=== PATIENT | male | born 1985 | race Caucasian/White ===

== ENCOUNTER 2025-03-24 06:30 | Day surgery (SDC) | payer BC, SELFPAY ==
[2025-03-24 08:10] VITALS: BMI 22.6
[2025-03-24 08:15] VITALS: BP 119/83
[2025-03-24] MEDS: TYLENOL 1000 MG PO (08:15)
[2025-03-24 08:17] VITALS: BMI 22.6
[2025-03-24] MEDS: NORMOSOL-R/PLASMALYTE-A 1000 IV (08:26)
--- NOTE | 2025-03-24 09:39 | W.IMMPOSTOP ---
Addendum entered and electronically signed by Esequiel Ceja MD 03/24/25 09:58:
updated mother and patient in SDS, but patient still a bit groggy
Original Note:
Surgical Immed Post Op Note
-
Primary Surgeon: Esequiel Ceja MD
Assisting Surgeon: None
Pre-op Diagnosis: Anal pain, anal bleeding
Post-op Diagnosis: Prolapsing internal hemorrhoids
Procedure Performed: Exam under anesthesia, bilateral pudendal nerve block
Anesthesia Type: Sedation with local
Specimen / Cultures: None
Estimated Blood Loss: 2 mL
Complications: None
Operative Findings: 5 mixed�component partially prolapsing internal hemorrhoids; left lateral internal hemorrhoid with irritation and some oozing of blood
[2025-03-24 09:40] VITALS: BP 128/76
--- NOTE | 2025-03-24 09:41 | OR.RPT ---
Operative Report
Operative Report
DATE OF OPERATION: 03/24/2025
SURGEON: Esequiel Ceja MD
PREOPERATIVE DIAGNOSIS: Anal pain, anal bleeding
POSTOPERATIVE DIAGNOSIS: Prolapsing internal hemorrhoids
OPERATION: Exam under anesthesia, bilateral pudendal nerve block
ASSISTANTS:
1. None
ANESTHESIA: Sedation with local
ESTIMATED BLOOD LOSS: 2 mL
FINDINGS:
1. Large internal hemorrhoid in the left lateral position, mildly irritated with slight ooze of blood, partial prolapse, with moderate external component
2. Moderate internal hemorrhoids in the RPQ, RLQ and RAQ with small external component, minimally irritated, not bleeding, no prolapse
3. Small internal hemorrhoid in the left posterior position, not irritated, not bleeding, partial prolapse, with small external component and associated small skin tag
SPECIMENS:
1. None
DRAINS: None
COMPLICATIONS: None
INDICATIONS: The patient is a 39-year-old male with severe anxiety associated with doctors presented to my office for anal pain and bleeding concerning for hemorrhoids. Due to his anxiety, he was unable to tolerate a exam in the office. Therefore,
the patient was recommended to have an exam under anesthesia for diagnostic purposes. I explained that at most, if I saw something concerning, I would perform a biopsy. However, definitive treatment for what ever pathology I find would be
discussed after the surgery in order to provide adequate informed consent for the indicated therapy. The operation was discussed with the patient in detail, including the risks, benefits and alternatives. Risks described included, but not limited
to, bleeding, infection, urinary retention and anesthetic risks. The patient understood and agreed to proceed. The consent was signed and placed in the chart.
PROCEDURE IN DETAIL: The patient was taken to the operating room. Sequential compression devices were placed bilaterally. The patient was placed on the operating table in prone position. Sedation was commenced without complication. Two seat belts
were secured around the legs and upper back. The buttocks were taped apart. The perineum was shaved, prepped and draped in the usual fashion. A time-out was performed verifying the correct patient, procedure, operative site, positioning, and
special equipment.
Local anesthesia used was a mixture of 30 mL of 0.25% Marcaine with epinephrine, 30mL of 1% lidocaine plain and 0.6 mg of dexamethasone. 40 mL was injected perianally at the beginning of the case. The anorectal exam was performed assessing all four
quadrants of the anal canal using Hill-Su retractors in progressively increasing size. There was a large internal hemorrhoid in the left lateral position that was mildly irritated with a small amount of oozing blood, associated with a
moderate external component. There was partial prolapse noted with withdrawal of the anoscope, but the hemorrhoid completely reduced. There was a small internal hemorrhoid in the left posterior position with a small external component associated
with a small skin tag. This was not irritated or bleeding and also prolapsed partially on withdrawal of the anoscope, but easily reduced. There were 3 moderate-sized internal hemorrhoids in the right posterior, right lateral and right anterior
positions, each with a small external component. These were minimally irritated and not bleeding. These did not prolapse on withdrawal of the anoscope. There was no proctitis and there were no masses. The anal canal was 4 cm or so long.
The remaining 20 mL of local were injected. 5 mL was injected bilaterally for a pudendal nerve block. 10 mL was injected around the surgical site and perianally. Hemostasis was reassessed once more using the small Hill-Su and was confirmed.
At this point, the procedure was complete. All needle, sponge and instrument counts were correct. The patient tolerated the procedure well and was transferred to the recovery room in stable condition with gauze dressing in place secured with silk
tape.
DICTATED BY: Esequiel Ceja MD
[2025-03-24 09:45] VITALS: BP 128/78
[2025-03-24 10:00] VITALS: BP 128/75
== END 2025-03-24 10:20 | disposition home or self-care (01) ==
LOC: SDS 06:30
PROVIDERS: ATTENDING PHYSICIAN Surgery
DX: K62.5 Hemorrhage of anus and rectum (principal); K64.8 Other hemorrhoids
CPT/HCPCS: 45990